=== PATIENT | male | born 1965 | race Caucasian/White ===

== ENCOUNTER → 2020-06-02 09:45 | Outpatient (BNVA) | payer OTHER, SELFPAY | PROVIDERS: PCP Nurse Practitioner Adult Health; Visit Provider Nurse Practitioner Family | DX: I25.10 Atherosclerotic heart disease of native coronary artery without angina pectoris (principal); I21.4 Non-ST elevation (NSTEMI) myocardial infarction; I10 Essential (primary) hypertension; R78.5 Finding of other psychotropic drug in blood; Z98.890 Other specified postprocedural states | CPT/HCPCS: 99214; 93005 ==

== ENCOUNTER 2023-03-18 14:02 | Outpatient (AMB) | payer OTHER, SELFPAY ==
--- NOTE | 2023-03-18 14:23 | MHC.OFFVIS ---
Intake Vital Signs 03/18/23 14:25 Height 5 ft 10 in Weight 266 lb 12.149 oz BMI 38.3 BP 116/74 Blood Pressure Location Lt brachial Position Sitting Pulse 90 Intake Visit Reasons: 1 yr f/up r/s Intake Note: Overdue follow-up with ekg feeling good [employer] Machine Set Up Mechanic Required: No Allergies No Known Allergies Allergy (Verified 06/02/20 10:19) Medication List - Last Reconciled 03/18/23 by Thai Jacobs MD aspirin 81 mg PO DAILY hydrochlorothiazide 25 mg PO DAILY insulin glargine (Lantus Solostar U-100 Insulin) 25 units subcut BEDTIME lisinopril 20 mg PO DAILY metformin 850 mg PO BID metoprolol succinate ER 200 mg PO DAILY rosuvastatin 40 mg PO DAILY HPI HPI Comments History of Present Illness Details Chepe comes for follow-up. He has been doing well. He has been more active. He says his hemoglobin A1c is under better control with last hemoglobin A1c at 6.2%. Denies any exertional chest pain or shortness of breath. Takes all his medications. No recent lipid panel. No heart failure symptoms. Denies any prolonged palpitations, lightheadedness, syncope. [facility] Medical History (Updated 03/18/23 @ 14:58 by Thai Jacobs MD) NSTEMI (non-ST elevated myocardial infarction) Obesity HLD (hyperlipidemia) HTN (hypertension) CAD (coronary artery disease) Surgical History (Updated 03/18/23 @ 14:58 by Thai Jacobs MD) Hx of cardiac cath Hx of cardiac cath Family History Father CVD (cardiovascular disease) S/P CABG x 3 Review of Systems Const Denies chills, Denies fatigue, Denies fever(s), Denies frequent falls, Denies weakness, Denies weight gain and Denies weight loss ENT Denies dizziness Card Denies chest pain, Denies leg edema, Denies lightheadedness, Denies palpitations, Denies dyspnea, Denies dyspnea on exertion, Denies orthopnea and Denies other (loss of consciousness) Resp Denies cough, Denies dyspnea and Denies dyspnea on exertion GI Denies hematochezia and Denies change in stool character Musc Denies abnormal gait, Denies muscle weakness, Denies numbness, Denies radiating pain into limb and Denies tingling Neuro Denies abnormal gait, Denies dizziness, Denies frequent falls, Denies numbness, Denies tingling and Denies weakness Endo Denies fatigue and Denies palpitations Physical Exam Vital Signs: Last Vital Signs Pulse 90 03/18/23 14:25 BP 116/74 03/18/23 14:25 BMI result Body Mass Index 38.3 Const General: cooperative, healthy appearing, comfortable and no acute distress Orientation/consciousness: patient oriented x3 Neck Neck: Yes normal visual inspection and Yes no JVD Carotids: normal carotid upstroke Resp Effort & Inspection: normal respiratory effort Auscultation: clear to auscultation bilaterally, no crackles, no rales, no rhonchi and no wheezes Cardio Jugular venous distension: no JVD Rate: regular rate Rhythm: regular rhythm Heart sounds: S1 normal heart sound present, S2 normal heart sound present, no gallops, no murmurs and no rubs Peripheral pulses: Peripheral pulses 2+ throughout GI Inspection: Yes normal to inspection Neuro General: patient oriented x3 Extrem General: Yes normal to inspection, No no pedal edema and No calf tenderness Office Procedures EKG Details: EKG shows normal sinus rhythm with PACs with Q-waves in lead 3 [id number], Complete Assessment & Plan Assessment & Plan (1) CAD (coronary artery disease): Code(s): I25.10 - Atherosclerotic heart disease of [place] coronary artery without angina pectoris Plan: Stable coronary artery disease without any new symptoms at good functional status. Last stenting done in 2014. He has been on good medical therapy since then. Continue lifelong aspirin therapy. Continue aggressive vascular risk factor modification. Blood pressure is optimized, see below. Aggressive control of diabetes goal hemoglobin A1c less than 7%. Goal LDL closer to 50 mg/dL. Advised lipid panel near future. Advised to call me with new symptoms. Next year will pursue myocardial perfusion imaging at 10 year anniversary. (2) HTN (hypertension): Code(s): I10 - Essential (primary) hypertension Plan: Hypertension which is currently well optimized. Continue current therapy. Importance of good blood pressure control was discussed advised monitor blood pressure at home maintain a log. Goal blood pressure less than 130/84. Low-salt diet was discussed advised to continue to participate in regular physical activity and weight loss program. Follow up in the clinic in 1 year's time, sooner p.r.n.. Thank you for allowing me to partake in his care Orders: Orders Lipid Panel Today I25.10 - Atherosclerotic heart disease of [place] coronary artery without angina pectoris Coding Level of Care Code Est Pt Level 4 (59652) Diagnoses CAD (coronary artery disease) I25.10 HTN (hypertension) I10 CPT Codes EKG - CPT: 90918-[id number], Complete ([id number])
[2023-03-18 14:25] VITALS: BP 116/74; PULSE 90; BMI 38.3
== END 2023-03-18 14:51 | disposition home or self-care (01) ==
PROVIDERS: PCP Nurse Practitioner Adult Health; Visit Provider Internal Medicine Cardiovascular Disease
DX: I25.10 Atherosclerotic heart disease of native coronary artery without angina pectoris (principal); I10 Essential (primary) hypertension
CPT/HCPCS: 93010; 99214

== ENCOUNTER → 2023-03-18 14:02 | Outpatient (BNVA) | payer OTHER, SELFPAY | PROVIDERS: PCP Nurse Practitioner Adult Health; Visit Provider Internal Medicine Cardiovascular Disease | DX: I25.10 Atherosclerotic heart disease of native coronary artery without angina pectoris (principal); I10 Essential (primary) hypertension; Z79.82 Long term (current) use of aspirin | CPT/HCPCS: 93005 ==

== ENCOUNTER 2024-03-19 14:10 | Outpatient (REF) | payer OTHER, SELFPAY ==
[2024-03-19 15:34] LABS: Hematocrit 41.6 % (42.0-52.0); Hemoglobin 13.6 g/dl (14.0-18.0); Mean Corpuscular HGB Conc 32.7 g/dl (31.0-36.0); Mean Corpuscular Hemoglobin 20.1 pg (27.0-33.0); Platelet Count 275 X10*3/uL (160-400); Red Blood Count 6.77 X10*6/uL (4.60-5.80); Red Cell Distribution Width 17.3 % (11.0-16.0); White Blood Count 7.4 X10*3/uL (4.8-10.8)
[2024-03-19 15:35] LABS: Mean Corpuscular Volume 61.4 fL (80.0-98.0); PLT ABN DIST 1
[2024-03-19 16:01] LABS: B Type Natriuretic Peptide 53 pg/mL (<100)
[2024-03-19 16:58] LABS: Anion Gap 17 (12-20); Blood Urea Nitrogen 24 mg/dL (9-16); Calcium 9.4 mg/dL (8.4-10.2); Carbon Dioxide 25 mmol/L (22-29); Chloride 94 mmol/L (96-108); Estimated Glomerular Filt Rate 51; Glucose Random 521 mg/dL (60-115); Magnesium 2.3 mg/dL (1.6-2.6); Potassium 4.5 mmol/L (3.3-5.1); Sodium 131 mmol/L (135-145)
--- OUTSIDE RECORDS SUMMARY | 2024-03-19 18:43 | XMS_ITS | Clinical Summary ---
Author Organization [employer] Address [address] [facility] [address] [place] [address] Care Team Providers Care Cd Reactor Operator Head Name Role Phone Felecia Rodrigues PA-C Primary [...] complication, with long-term current use of insulin ([facility]) ADMINISTER 25 UNITS UNDER THE SKIN DAILY AT BEDTIME 15 mL 3 4 Active B-D ULTRAFINE III SHORT PEN 31G X 8 MM miscIndications :Type 2 diabetes mellitus without complication, with long-term current use of insulin ([facility]) Inject 1 each under the skin Once [...] mg/dL 122 Coronary artery disease invo lving [place] coronary artery of [place] heart without angina pectoris 03/21/2022 Overview (10/22/2023): Rx metoprolol, lisinopril, HCTZ, ASA, rosuvastatin H/o [place] with stenting some time prior to 2001 Follows with cards in [place], followed by Dr. 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
== END 2024-03-19 14:11 | disposition home or self-care (01) ==
LOC: HO.LAB 14:10
PROVIDERS: PCP Nurse Practitioner Adult Health; Visit Provider Internal Medicine Cardiovascular Disease
DX: I48.92 Unspecified atrial flutter (principal); I25.10 Atherosclerotic heart disease of native coronary artery without angina pectoris; Z79.01 Long term (current) use of anticoagulants; Z79.899 Other long term (current) drug therapy
CPT/HCPCS: 36415; 80048; 83735; 83880; 84443; 85027; 93005

== ENCOUNTER 2024-03-19 14:10 | Outpatient (AMB) | payer OTHER, SELFPAY ==
--- NOTE | 2024-03-19 14:21 | A.OFFVIS_ITS ---
Vital Signs 03/19/24 14:23 Height 5 ft 10 in Weight 244 lb 11.41 oz BMI 35.1 BP 120/80 Blood Pressure Location Lt brachial Position Sitting Pulse 86 Intake Visit Reasons: 1 yr f/up Intake Note: 1 year follow-up with ekg c/o leg cramps and sob after doing stairs [employer] Consultant Required: No Allergies No Known Allergies Allergy (Verified 06/02/20 10:19) Medication List - Last Reconciled 03/19/24 by Thai Jacobs MD aspirin 81 mg PO DAILY gabapentin 100 mg PO BID hydrochlorothiazide 25 mg PO DAILY insulin glargine (Lantus Solostar U-100 Insulin) 25 units subcut BEDTIME lisinopril 20 mg PO DAILY metformin 850 mg PO BID metoprolol succinate ER 200 mg PO DAILY rosuvastatin 40 mg PO DAILY HPI Comments Details: Chepe comes for follow-up. He said for about a month he has been noticing symptoms of exertional shortness of breath. Denies any orthopnea, PND, leg edema. Denies any prolonged palpitation irregular heartbeat. Denies any exertional chest pain. Also complains of calf discomfort at nighttime when he sleeping. Does not usually get calf discomfort with walking. EKG today shows atrial flutter which is new onset for him. He has no prior history of atrial fibrillation or flutter. [facility] Medical History (Updated 03/19/24 @ 14:45 by Thai Jacobs MD) NSTEMI (non-ST elevated myocardial infarction) Obesity HLD (hyperlipidemia) HTN (hypertension) CAD (coronary artery disease) Surgical History (Updated 03/18/23 @ 14:58 by Thai Jacobs MD) Hx of cardiac cath Hx of cardiac cath Family History Father CVD (cardiovascular disease) S/P CABG x 3 Review of Systems Const Denies chills, Denies fatigue, Denies fever(s), Denies frequent falls, Denies weakness, Denies weight gain and Denies weight loss ENT Denies dizziness Card Denies chest pain, Denies leg edema, Denies lightheadedness, Denies palpitations, Denies dyspnea, Denies dyspnea on exertion, Denies orthopnea and Denies other (loss of consciousness) Resp Denies cough, Denies dyspnea and Denies dyspnea on exertion GI Denies hematochezia and Denies change in stool character Musc Denies abnormal gait, Denies muscle weakness, Denies numbness, Denies radiating pain into limb and Denies tingling Neuro Denies abnormal gait, Denies dizziness, Denies frequent falls, Denies numbness, Denies tingling and Denies weakness Endo Denies fatigue and Denies palpitations Physical Exam Vital Signs: Last Vital Signs Pulse 86 03/19/24 14:23 BP 120/80 03/19/24 14:23 BMI result Body Mass Index 35.1 Const General: cooperative, healthy appearing, comfortable and no acute distress Orientation/consciousness: patient oriented x3 Neck Neck: Yes normal visual inspection and Yes no JVD Carotids: normal carotid upstroke Resp Effort & Inspection: normal respiratory effort Auscultation: clear to auscultation bilaterally, no crackles, no rales, no rhonchi and no wheezes Cardio Jugular venous distension: no JVD Rhythm: abnormal rhythm irregularly irregular Heart sounds: S1 normal heart sound present, S2 normal heart sound present, no gallops, no murmurs and no rubs Peripheral pulses: Peripheral pulses 2+ throughout GI Inspection: Yes normal to inspection Neuro General: patient oriented x3 Extrem General: Yes normal to inspection, No no pedal edema and No calf tenderness Office Procedures EKG Details: EKG shows atrial flutter with variable conduction with nonspecific ST T wave changes suggestive of repolarization abnormality [id number], Complete Assessment & Plan Assessment & Plan (1) Atrial flutter: Code(s): I48.92 - Unspecified atrial flutter Category: Medical Plan: New onset persistent atrial flutter most likely cause for his most recent exertional shortness of breath. No clinical signs or symptoms of congestive heart failure. Pathophysiology of atrial flutter/fibrillation and symptoms related to loss of AV synchrony was discussed with him. I think he will benefit from rhythm control approach given his age. Will require blood work today including TSH as well as chemistries including BNP. Will also need an echocardiogram to assess for LV systolic and diastolic function biatrial chamber size to manage antiarrhythmic drug therapy if required. Discussed the risk of stroke given his multiple risk factors with CHADSVASc score of at least 3. I have taken the liberty to stop his aspirin and switch him to Eliquis 5 mg b.i.d. after obtaining blood work. Once he is adequately anticoagulated over the next 3-4 weeks will schedule him for synchronized cardioversion. Discussed with him the risks, benefits, alternatives. Will discuss the need for antiarrhythmic drug therapy based on biatrial chamber size on echocardiogram. Management was discussed in details. He understands and agrees. (2) CAD (coronary artery disease): Code(s): I25.10 - Atherosclerotic heart disease of [place] coronary artery without angina pectoris Category: Medical Plan: CAD which has remained stable with no recurrent symptoms. Has had multiple revascularizations including stenting and multiple different coronary distribution without any recurrent symptoms on aggressive medical therapy and compliance with medical therapy. Advised to continue current medical therapy. Aggressive blood pressure control was advised which is currently well optimized. Continue aggressive diabetes management goal hemoglobin A1c less than 7%. Consider use of GLP 1 antagonist. Blood pressure is currently well optimized. Continue high-intensity statin therapy with target goal LDL closer to 55 mg/dL. Will obtain blood work through your office. Will follow up in the clinic after cardioversion in 2 months time. Thank you for allowing me to partake in his care Orders: Orders Basic Metabolic Panel Today I48.92 - Unspecified atrial flutter Complete Blood Count no Diff Today I48.92 - Unspecified atrial flutter Magnesium Today I48.92 - Unspecified atrial flutter CA echo transthoracic complete Today I48.92 - Unspecified atrial flutter B Type Natriuretic Peptide Today I48.92 - Unspecified atrial flutter TSH reflex Free T4 Today I48.92 - Unspecified atrial flutter Cardioversion 4 Weeks I48.92 - Unspecified atrial flutter RT home sleep study Today I48.92 - Unspecified atrial flutter, R40.0 - Somnolence Medications: New apixaban (Eliquis) 5 mg PO BID 60 tabs 5RF I48.92 - Unspecified atrial flutter Discontinued aspirin Discontinued Reason: Doctor's Order 81 mg PO DAILY 90 tabs 3RF Coding Level of Care Code Est Pt Level 4 (73277) Complex EM visit Add On G2211 Diagnoses Atrial flutter I48.92 CAD (coronary artery disease) I25.10 CPT Codes EKG - CPT: 05327-[id number], Complete ([id number])
[2024-03-19 14:23] VITALS: BP 120/80; PULSE 86; BMI 35.1
--- OUTSIDE RECORDS SUMMARY | 2024-03-19 17:57 | XMS_ITS | Clinical Summary ---
Author Organization [employer] Address [address] [facility] [address] [place] [address] Care Team Providers Care Dumper Mold Cleaner Name Role Phone Felecia Rodrigues PA-C Primary Care Provider Unav ailable Allergies No known active allergies Medications rosuvastatin (Crestor) 40 MG tablet Take 40 mg by mouth in the morning. 2 Active metoprolol succinate XL (Toprol-XL) 200 MG 24 hr tablet Take 200 mg by mouth in the morning. 2 Active lisinopril 20 MG tablet Take 20 mg by mouth in the morning. 2 Active hydroCHLOROthia zide (HYDRODiuril) 25 MG tablet Take 25 mg by mouth in the morning. 2 Active FREESTYLE LITE test strip USE DIRECTED BY PRESCRIBER TO MONITOR BLOOD GLUCOSE 2 Active Blood Glucose Monitoring Suppl (FreeStyle Lite) w/Device kit USE DIRECTED BY PRESCRIBER TO TEST BLOOD GLUCOSE 2 Active Aspirin Low Dose 81 MG EC tablet TAKE 1 TABLET BY MOUTH ONCE DAILY--OVERDUE FOR APPT 2 Active Alcohol Swabs (B-D SINGLE USE SWABS REGULAR) pads USE DIRECTED BY PRESCRIBER 2 Active metFORMIN (Glucophage) 850 MG tabletIndicatio ns:Type 2 diabetes mellitus without complication, with long-term current use of insulin (CMS/HCC) TAKE 1 TABLET BY MOUTH TWICE DAILY WITH A MEAL 180 tablet 1 4 Active FreeStyle lancets 1 each by Other route Once per day. 100 each 12 4 08/29/19 25 Active glucose blood (FREESTYLE LITE) test strip 1 each by Other route Once per day. 100 each 11 4 Active Blood Glucose Monitoring Suppl (FreeStyle Lite) w/Device kit 1 Units Once per day. 1 kit 4 Active Lantus SoloStar 100 UNIT/ML penIndications: Type 2 diabetes mellitus without complication, with long-term current use of insulin ([facility]) ADMINISTER 25 UNITS UNDER THE SKIN DAILY AT BEDTIME 15 mL 3 4 Active B-D ULTRAFINE III SHORT PEN 31G X 8 MM miscIndications :Type 2 diabetes mellitus without complication, with long-term current use of insulin ([facility]) Inject 1 each under the skin Once per day. USE DIRECTED BY PRESCRIBER 100 each 3 4 Active gabapentin (Neurontin) 100 MG capsuleIndicati ons:Neuropathy TAKE 1 CAPSULE(100 MG) BY MOUTH TWICE DAILY 180 capsule 4 Active Active Problems Problem Noted Date Diagnosed Date Neuropathy 10/11/2022 Overview (06/20/2023): Has some loss of sensation and tingling. Likely from DM2. Having worsening symptoms. Will increase gabapentin to 200 mg BID. Type 2 diabetes mellitus without complications 0 03/21/2022 Overview (10/22/2023): Rx lantus 25 units at bedtime, metformin 850mg BID. A1C 09/2023 7.1% Has new watch that monitors his A1C at home Foot Exam 09/2022 Eye exam: 10/2022 Primary hypertension 03/21/2022 Overview (10/05/2022): Rx metoprolol, lisinopril, HCTZ Obesity (BMI 30-39.9) 03/21/2022 High cholesterol 03/21/2022 Overview (08/29/2023): Rx statin, lipid panel 08/2023. Recommend omega 3 fatty acid daily Cholesterol, Total 100 - 199 mg/dL 151 Triglycerides 0 - 149 mg/dL 440 High 357 Abnormal R HDL Cholesterol >39 mg/dL 29 Low VLDL Cholesterol Hank 5 - 40 mg/dL 66 High LDL Chol Calc (NIH) 0 - 99 mg/dL 56 Non-HDL Cholesterol 0 - 129 mg/dL 122 Coronary artery disease invo lving [place] coronary artery of [place] heart without angina pectoris 03/21/2022 Overview (10/22/2023): Rx metoprolol, lisinopril, HCTZ, ASA, rosuvastatin H/o [place] with stenting some time prior to 2001 Follows with cards in [place], followed by Dr. Jacobs Age-related nuclear cataract of both eyes 2022 Resolved Problems Problem Noted Date Diagnosed Date Resolved Date H/O heart artery stent 03/21/202210/05 Encounters Date Type Department Care Team Description 01/12/2024 [place] [facility] [address] [place], [place] [id number] Felecia Rodrigues PA-C Neuropathy from Last 3 Months Immunizations Name Administration Dates Next Due Hep B, adult 02/26/2022,09/25/2021,08/25/2021 Influenza injectable quadriv alent preservative free 12/21/2021 Influenza, IIV3, injectable 03/04/2012, 1,11/24/2009 Pneumococcal Polysaccharide PPSV23 08/25/2021 Tdap 12/21/2021 Family History Medical History Relation Name Comments Diabetes type II Father Glaucoma Father Heart attack Father Diabetes type II Mother possible glacoma Mother Diabetes type II Paternal Grandfather Glaucoma Paternal Grandfather Breast cancer Sister Relation Name Status Comments Father Maternal Grandfather Maternal Grandmother Mother Alive Paternal Grandfather Paternal Grandmother Sister Alive Social History Tobacco Use Types Packs/Day Years Used Date Smoking Tobacco: Never Passive Smoke Exposure: Never Smokeless Tobacco: Never Alcohol Use Standard Drinks/Week Comments Yes 0 (1 standard drink = 0.6 oz pur e alcohol) few beers on the weekend Housing Stability Answer Date Recorded What is your housing situation today? I have diana bruce 06/20/[address] you li ve. Do you have problems with any of the following? None of the above 06/20/2023 Food Insecurity Answer Date Recorded Within the past 12 months, y ou worried that your food would run out before you got money to buy more: Never True 06/20/2023 Within the past 12 months,th e food you bought just didn't last and you didn't have enough money to get more: Never True 03/2023 Transportation Answer Date Recorded In the past 12 months, has l ack of transportation kept you from medical appts, meetings, work or from getting things needed for daily living? No 06/20/2023 Utilities Answer Date Recorded In the past 12 months, has t he electric, gas, oil or water company threatened to shut off services in your home? 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 file Not on file Not on file Last Filed Vital Signs Vital Sign Reading Time Taken Comments Blood Pressure 130/85 10/22/2023 2:27 PM EDT Pulse 72 10/22/2023 2:27 PM EDT Temperature 36.1 ??C (97 ??F) 08/29/2023 3:22 PM EDT Respiratory Rate 16 10/22/2023 2:27 PM EDT Oxygen Saturation 96% 10/22/2023 2:27 PM EDT Inhaled Oxygen Concentration - - Weight 119 kg (261 lb 4.8 oz) 10/22/2023 2:27 PM EDT Height 177.8 cm (5' 10 ) 10/22/2023 2:27 PM EDT Body Mass Index 37.49 10/22/2023 2:27 PM EDT Plan of Treatment Health Maintenance Due Date Last Done Comments CT Colonography 1964 Colonoscopy 1964 Colorectal Cancer Screening 1964 FIT DNA/Cologuard 1964 FIT 1964 FOBT 1964 HIV Screening 1964 Sigmoidoscopy 1964 Alcohol/Substance Use Screening 1976 Hepatitis C Screening 1982 Diabetes: Urine Protein Screening 11/18/1983 Zoster Vaccines (1 of 2) 2014 Pneumococcal Vaccine: 50+ Years (2 of 2 - PCV) 08/25/2022 08/25/2021 Pneumococcal Vaccine: Pediatrics (0 to 5 Years) and At-Risk Patients (6 to 49) Years) (2 of 2 - PCV) 08/25/2022 08/25/2021 Diabetes: Hemoglobin A1C 08/20/2023 02/19/2023, 0805/2022 Diabetes: Foot Exam 10/12/2023 10/11/2022, 10/11/2022, 10/11/2022 COVID-19 Vaccine ( season) 2023 03/25/2021, 06/30/2020, 06/08/2020 Influenza Vaccine (#1) 2023 , 03/04/2012, 11/22/2010, Additional history exists Depression Screening 06/19/2024 06/20/2023, 06/20/19 SDOH Screening 06/19/2024 06/20/2023 Lipid Panel 08/27/2024 08/28/2023, 08/0 09/2021, 09/25/2021 Tobacco Screening 08/28/2024 08/29/2023 Eye Exam 10/30/2024 10/30/2022, 10/19, 10/30/2022, Additional history exists DTaP/Tdap/Td Vaccines (2 - Td or Tdap) 12/22/2031 12/21/2021 RSV Patients and Patients Aged 60 years or older (1 - 1-dose 75+ series) 11/18/2039 Hepatitis B Vaccines Completed 02/26/2022, 09/25/2021, 08/25/2021 HIB Vaccines Aged Out No longer eligi ble based on patient's age to complete this topic HPV Vaccines Aged Out No longer eligi ble based on patient's age to complete this topic Hepatitis A Vaccines Aged Out No long er eligible based on patient's age to complete this topic IPV Vaccines Aged Out No longer eligi ble based on patient's age to complete this topic Meningococcal Vaccine Aged Out No giorgio aurea eligible based on patient's age to complete this topic RSV under 20 months Aged Out No longe r eligible based on patient's age to complete this topic Rotavirus Vaccines Aged Out No longer eligible based on patient's age to complete this topic Procedures Procedure Name Priority Date/Time Associated Diagnosis Comments LIPID PROFILE WITH NON-HDL CHOLESTEROL Routine 08/28/2023 9:51 AM EDT POCT GLYCOSYLATED HEMOGLOBIN (HGB A1C) Routine 02/19/2023 3:06 PM EST Type 2 diabetes mellitus without complication, with long-term current use of insulin ([facility]) from Last 3 Months or Most Recently Relevant to Health Maintenance Results * (ABNORMAL) Lipid Profile With Non-HDL Cholesterol (08/28/2023 9:51 AM EDT) Cholesterol, Total 151 100 - 199 mg/dL [facility] Triglycerides 440(H) 0 - 149 mg/dL [facility] HDL Cholesterol 29(L) >39 mg/dL [facility] VLDL Cholesterol Hank 66(H) 5 - 40 mg/dL [facility] LDL Chol Calc (NIH) 56 0 - 99 mg/dL [facility] Non-HDL Cholesterol 122 0 - 129 mg/dL [facility] 08/28/2023 9:51 AM EDT 08/28/2023 Narrative [facility] - 08/29/2023 6:05 AM EDT Performed at: ??01 - [facility] [address] ??[id number] Social Services Analyst: Alfreda Cook MD, Phone: ??[phone] Felecia Rodrigues PA-C LAB BLOOD ORDERABLES Final Result [facility] * (ABNORMAL) POCT glycosylated hemoglobin (Hgb A1c) (02/19/2023 3:06 PM EST) Hemoglobin A1C 6.7(A) 4.0 - 6.0 % Comment:6.7 QC Media Lot # 11 Lot# Expiration Date 11 Blood Capillary blood specimen / Unknown 02/19/2023 3:06 PM EST Felecia Rodrigues PA-C POINT OF CARE TEST ENTER/ED IT ORDERABLES Final Result from Last 3 Months or Most Recently Relevant to Health Maintenance Insurance [facility] , [address] [place] [address] Care Teams Dumper Mold Cleaner Relationship Specialty Start Date End Date Felecia Rodrigues PA-C PCP - General Family Medicine 10/11/22
== END 2024-03-19 15:52 | disposition home or self-care (01) ==
PROVIDERS: PCP Nurse Practitioner Adult Health; Visit Provider Internal Medicine Cardiovascular Disease
DX: I48.92 Unspecified atrial flutter (principal); I25.10 Atherosclerotic heart disease of native coronary artery without angina pectoris
CPT/HCPCS: 93010; 99214